=== PATIENT | male | born 1990 | race African-American/Black ===

== ENCOUNTER 2020-10-26 17:46 | Emergency (ER) | payer OTHER ==
[2020-10-26 22:08] LABS: Absolute Lymphocytes (CBC) 0.4 K/uL (0.7-4.9); Basophils % 0.2 % (0-1.3); Hematocrit 43.3 % (39.6-49.0); Lymphocytes % 4.9 % (15.3-44.8); MPV 9.4 fL (7.6-11.3)
[2020-10-26 22:31] LABS: Bilirubin Direct 0.2 mg/dL (0-0.2); Bilirubin Total 0.5 mg/dL (0.2-1.0); Potassium 3.8 mmol/L (3.5-5.1); Protein, Total 7.2 g/dL (6.4-8.2)
[2020-10-26] MEDS ORDERED: LIDOCAINE VISCOUS 2% SOLN 15 ML UDC ONE (22:37)
[2020-10-26] MEDS ORDERED: MAGNES/ALUMIN/SIMET 30ML UCUP ONE (22:37)
[2020-10-26] MEDS ORDERED: NA CHLORIDE 0.9% 1,000 ML ONE (22:37)
[2020-10-26] MEDS ORDERED: FAMOTIDINE 20 MG/2 ML VIAL IV ONE (22:37)
[2020-10-26 23:13] LABS: Urine Blood Negative (Negative); Urine Glucose Negative (Negative); Urine Protein Negative (Negative); Urine Specific Gravity 1.025 (1.005-1.030)
--- NOTE | 2020-10-26 23:14 | ER ---
Nurse's Notes [facility] Name: Dharmesh Rodríguez Age: 30 yrs Sex: Male : 1990 Arrival Date: 10/26/2020 Time: 17:52 Bed 28 Private MD: Diagnosis: Gastroenteritis Presentation: 10/26 18:13 Chief complaint: Patient states: Epigastric pain with N/V/D for 1 day. No fever. ll1 Coronavirus screen: Client denies travel out of the [place] in the last 14 days. At this time, the client does not indicate any symptoms associated with coronavirus-19. Ebola Screen: Patient denies travel to an Ebola-affected area in the 21 days before illness onset. Initial Sepsis Screen: Does the patient meet any 2 criteria? HR > 90 bpm. No. Patient's initial sepsis screen is negative. Does the patient have a suspected source of infection? Yes: Acute abdominal pain. Risk Assessment: Do you want to hurt yourself or someone else? Patient reports no desire to harm self or others. Onset of symptoms was October 26, 2020. 18:13 Method Of Arrival: Ambulatory 1 18:13 Acuity: HARMEET 3 ll1 Triage Assessment: 18:16 General: Appears uncomfortable, Behavior is calm, cooperative, appropriate for age. ll1 Pain: Complains of pain in upper abdomen Quality of pain is described as aching, Aggravated by BM's. Neuro: No deficits noted. Cardiovascular: No deficits noted. Respiratory: No deficits noted. GI: Abdomen is flat, Reports upper abdominal pain, diarrhea, nausea, vomiting. Historical: - Allergies: 18:15 No Known Allergies; ll1 - PMHx: 18:15 Migraines; ll1 - PSHx: 18:15 None; ll1 - Immunization history:: Flu vaccine is not up to date. - Social history:: Smoking status: Patient/guardian denies using tobacco, the patient reports quitting approximately 1 years ago. Screenin:30 Abuse screen: Denies threats or abuse. Nutritional screening: No deficits noted. bb Tuberculosis screening: No symptoms or risk factors identified. Fall Risk None identified. Assessment: 21:30 General: Appears in no apparent distress. Behavior is calm, cooperative. Pain: bb Complains of pain in abdomen. Neuro: Level of Consciousness is awake, alert, obeys commands, Oriented to person, place, time, situation. Cardiovascular: No deficits noted. Respiratory: Respiratory effort is even, unlabored, Respiratory pattern is regular. GI: Bowel sounds present X 4 quads. Abd is soft X 4 quads. Derm: Skin is dry, Skin is normal, Skin temperature is warm. Musculoskeletal: Circulation, motion, and sensation intact. 22:30 Reassessment: Patient is alert, oriented x 3, equal unlabored respirations, skin bb warm/dry/pink. awaiting diagnostic results. 23:30 Reassessment: Patient is alert, oriented x 3, equal unlabored respirations, skin bb warm/dry/pink. pt verbalized understanding of and agrees to plan of care discharge instructions given pt ambulated with steady gait to exit. Vital Signs: 18:13 BP 102 / 67; Pulse 96; Resp 17; Temp 99.1; Pulse Ox 97% ; Weight 83.91 kg; Height 5 ft. ll1 10 in. (177.80 cm); Pain 4/10; 21:41 BP 109 / 73; Pulse 84; Resp 18 S; Pulse Ox 99% on R/A; Pain 1/10; jp3 22:30 BP 109 / 69; Pulse 88; Resp 16 S; Pulse Ox 100% on R/A; bb 23:30 BP 112 / 76; Pulse 88; Resp 16 S; Pulse Ox 100% on R/A; bb 18:13 Body Mass Index 26.54 (83.91 kg, 177.80 cm) ll1 ED Course: 17:52 Patient arrived in ED. mr 18:14 Triage completed. ll1 18:15 Arm band placed on. ll1 21:24 Israel Tomlinson MD is Attending Physician. [facility] 21:35 Initial lab(s) drawn, by wv, sent to lab. Inserted saline lock: 20 gauge in left wrist, jp3 using aseptic technique. Blood collected. Patient maintains SpO2 saturation greater than 95% on room air. 21:41 Bed in low position. Call light in reach. Side rails up X 1. Warm blanket given. Verbal jp3 reassurance given. Pulse ox on. NIBP on. 23:13 Urine collected: clean catch specimen, clear, mimi colored. jp3 23:30 No provider procedures requiring assistance completed. IV discontinued, intact, bb bleeding controlled, No redness/swelling at site. Pressure dressing applied. Administered Medications: 22:35 Drug: NS 0.9% 1000 ml Route: IV; Rate: 1000 ml; Site: left wrist; bb 23:30 Follow up: IV Status: Completed infusion; IV Intake: 1000ml bb 22:35 Drug: Pepcid (famotidine) 20 mg Route: IVP; Site: left wrist; bb 23:30 Follow up: Response: No adverse reaction bb 22:35 Drug: GI Cocktail without - (Maalox Suspension 30 ml, Lidocaine Liquid 2 % 15 bb ml) Route: PO; 23:30 Follow up: Response: No adverse reaction bb Intake: 23:30 IV: 1000ml; Total: 1000ml. bb Outcome: 23:13 Discharge ordered by MD. marquez 23:30 Patient left the ED. bb 23:30 Discharged to home ambulatory. bb 23:30 Condition: stable 23:30 Discharge instructions given to patient, Instructed on discharge instructions, follow up and referral plans. medication usage, Demonstrated understanding of instructions, follow-up care, medications, Prescriptions given X 4. Signatures: Lilibeth Clifton Brenda, RN RN bb Aubrey Pham jp3 Ioana Allen RN RN ll1 Israel Tomlinson MD MD 7
--- NOTE | 2020-10-26 23:14 | EDPHYS ---
Physician Documentation [facility] Name: Dharmesh Rodríguez Age: 30 yrs Sex: Male : 1990 Arrival Date: 10/26/2020 Time: 17:52 Bed 28 Private MD: ED Physician Israel Tomlinson HPI: 10/26 22:41 This 30 yrs old Black Male presents to ER via Ambulatory with complaints of Abdominal mh7 Pain, Vomiting/Diarrhea. 22:41 The patient presents to the emergency department with nausea, that is mild, vomiting, 1 mh7 times since the onset of symptoms, diarrhea, that is intermittent, 3 times since the onset of symptoms, abdominal pain, of the epigastric area, described as burning, crampy, intermittent, and does not radiate. Onset: The symptoms/episode began/occurred this morning, today. Possible causes: unknown. The symptoms are aggravated by nothing. The symptoms are alleviated by nothing. Associated signs and symptoms: Pertinent positives: abdominal pain, diarrhea, nausea, vomiting, Pertinent negatives: anorexia, belching, constipation, dysuria, fever, flatulence, GI bleeding, hematuria. Severity of symptoms: At their worst the symptoms were moderate this morning, today, in the emergency department the symptoms have improved markedly. Historical: - Allergies: 18:15 No Known Allergies; ll1 - PMHx: 18:15 Migraines; ll1 - PSHx: 18:15 None; ll1 - Immunization history:: Flu vaccine is not up to date. - Social history:: Smoking status: Patient/guardian denies using tobacco, the patient reports quitting approximately 1 years ago. ROS: 22:41 Constitutional: Negative for fever, chills, and weight loss, Eyes: Negative for injury, mh7 pain, redness, and discharge, ENT: Negative for injury, pain, and discharge, Neck: Negative for injury, pain, and swelling, Cardiovascular: Negative for chest pain, palpitations, and edema, Respiratory: Negative for shortness of breath, cough, wheezing, and pleuritic chest pain, Back: Negative for injury and pain, : Negative for injury, bleeding, discharge, and swelling, MS/Extremity: Negative for injury and deformity, Skin: Negative for injury, rash, and discoloration, Neuro: Negative for headache, weakness, numbness, tingling, and seizure, Psych: Negative for depression, anxiety, suicide ideation, homicidal ideation, and hallucinations, Allergy/Immunology: Negative for hives, rash, and allergies, Endocrine: Negative for neck swelling, polydipsia, polyuria, polyphagia, and marked weight changes, Hematologic/Lymphatic: Negative for swollen nodes, abnormal bleeding, and unusual bruising. Exam: 22:41 Constitutional: This is a well developed, well nourished patient who is awake, alert, mh7 and in no acute distress. Head/Face: Normocephalic, atraumatic. Eyes: Pupils equal round and reactive to light, extra-ocular motions intact. Lids and lashes normal. Conjunctiva and sclera are non-icteric and not injected. Cornea within normal limits. Periorbital areas with no swelling, redness, or edema. Neck: Trachea midline, no thyromegaly or masses palpated, and no cervical lymphadenopathy. Supple, full range of motion without nuchal rigidity, or vertebral point tenderness. No Meningismus. Chest/axilla: Normal chest wall appearance and motion. Nontender with no deformity. No lesions are appreciated. Cardiovascular: Regular rate and rhythm with a normal S1 and S2. No gallops, murmurs, or rubs. Normal PMI, no JVD. No pulse deficits. Respiratory: Lungs have equal breath sounds bilaterally, clear to auscultation and percussion. No rales, rhonchi or wheezes noted. No increased work of breathing, no retractions or nasal flaring. Abdomen/GI: Soft, non-tender, with normal bowel sounds. No distension or tympany. No guarding or rebound. No evidence of tenderness throughout. Back: No spinal tenderness. No costovertebral tenderness. Full range of motion. Skin: Warm, dry with normal turgor. Normal color with no rashes, no lesions, and no evidence of cellulitis. MS/ Extremity: Pulses equal, no cyanosis. Neurovascular intact. Full, normal range of motion. Neuro: Awake and alert, GCS 15, oriented to person, place, time, and situation. Cranial nerves II-XII grossly intact. Motor strength 5/5 in all extremities. Sensory grossly intact. Cerebellar exam normal. Normal gait. Psych: Awake, alert, with orientation to person, place and time. Behavior, mood, and affect are within normal limits. Vital Signs: 18:13 BP 102 / 67; Pulse 96; Resp 17; Temp 99.1; Pulse Ox 97% ; Weight 83.91 kg; Height 5 ft. ll1 10 in. (177.80 cm); Pain 4/10; 21:41 BP 109 / 73; Pulse 84; Resp 18 S; Pulse Ox 99% on R/A; Pain 1/10; jp3 22:30 BP 109 / 69; Pulse 88; Resp 16 S; Pulse Ox 100% on R/A; bb 23:30 BP 112 / 76; Pulse 88; Resp 16 S; Pulse Ox 100% on R/A; bb 18:13 Body Mass Index 26.54 (83.91 kg, 177.80 cm) ll1 MDM: 23:12 Differential diagnosis: Nonspecific abd pain, gastritis, pancreatitis, viral mh7 gastroenteritis, gastroenteritis. Data reviewed: vital signs, nurses notes, lab test result(s), amylase and lipase, CBC, electrolytes. Data interpreted: Pulse oximetry: on room air is 99 %. Interpretation: normal. Counseling: I had a detailed discussion with the patient and/or guardian regarding: the historical points, exam findings, and any diagnostic results supporting the discharge/admit diagnosis, lab results, the need for outpatient follow up, to return to the emergency department if symptoms worsen or persist or if there are any questions or concerns that arise at home. Response to treatment: the patient's symptoms have resolved after treatment, the patient's blood pressure is in an acceptable range, mental status has returned to baseline, the patient no longer shows bradycardia, the patient is not short of breath, the patient is not tachycardic, the patient's pain is gone, the patient's temperature has normalized, the patient is now symptom free, patient is well hydrated. Tolerating oral intake without difficulty. 23:13 Patient medically screened. [facility] 10/26 21:44 Order name: Basic Metabolic Panel; Complete Time: 22:41 [facility] 10/26 21:44 Order name: CBC with Diff; Complete Time: 22:14 [facility] 10/26 21:44 Order name: Hepatic Function; Complete Time: 22:41 [facility] 10/26 21:44 Order name: Lipase; Complete Time: 22:41 [facility] 10/26 23:13 Order name: Urine Dipstick-Ancillary; Complete Time: 23:16 [facility] 10/26 21:44 Order name: IV Saline Lock; Complete Time: 23:14 [facility] 10/26 21:44 Order name: Labs collected and sent; Complete Time: 23:14 [facility] 10/26 21:44 Order name: Urine Dipstick-Ancillary (obtain specimen); Complete Time: 23:14 7 Administered Medications: 22:35 Drug: NS 0.9% 1000 ml Route: IV; Rate: 1000 ml; Site: left wrist; bb 23:30 Follow up: IV Status: Completed infusion; IV Intake: 1000ml bb 22:35 Drug: Pepcid (famotidine) 20 mg Route: IVP; Site: left wrist; bb 23:30 Follow up: Response: No adverse reaction bb 22:35 Drug: GI Cocktail without - (Maalox Suspension 30 ml, Lidocaine Liquid 2 % 15 bb ml) Route: PO; 23:30 Follow up: Response: No adverse reaction bb Disposition: 10/26/20 23:13 Discharged to Home. Impression: Gastroenteritis. - Condition is Stable. - Discharge Instructions: Viral Gastroenteritis, Adult, [id number]. - Prescriptions for Zofran ODT 4 mg Oral tablet,disintegrating - place 1 tablet by TRANSLINGUAL route every 8 hours As needed; 6 tablet. Bentyl 20 mg Oral Tablet - take 1 tablet by ORAL route every 6 hours As needed; 20 tablet. Pepcid 20 mg Oral Tablet - take 1 tablet by ORAL route every 12 hours for 5 days; 10 tablet. Cipro 500 mg Oral Tablet - take 1 tablet by ORAL route every 12 hours for 5 days; 10 tablet. - Medication Reconciliation Form, Thank You Letter, Antibiotic Education, Prescription Opioid Use form. - Follow up: Private Physician; When: 1 - 2 days; Reason: Worsening of condition, Recheck today's complaints, Continuance of care, Re-evaluation by your physician. - Problem is new. - Symptoms are resolved. Signatures: Dispatcher [employer] Toshia Chaudhary RN RN bb Ioana Allen RN RN ll1 Israel Tomlinson MD MD 7 Corrections: (The following items were deleted from the chart) 23:30 23:13 10/26/2020 23:13 Discharged to Home. Impression: Gastroenteritis. Condition is bb Stable. Forms are Medication Reconciliation Form, Thank You Letter, Antibiotic Education, Prescription Opioid Use. Follow up: Private Physician; When: 1 - 2 days; Reason: Worsening of condition, Recheck today's complaints, Continuance of care, Re-evaluation by your physician. Problem is new. Symptoms are resolved. mh7
[2020-10-26 23:36] VITALS: TEMP 99.1
[2020-10-26 23:37] VITALS: BP 109/73; O2SAT 99
== END 2020-10-26 23:30 | disposition home or self-care (01) ==
LOC: ER 17:46
DX: K52.9 Noninfective gastroenteritis and colitis, unspecified (principal)
CPT/HCPCS: 36415; 80048; 80076; 81003; 83690; 85025; 96361; 96374; 99284; J7030